=== PATIENT | female | born 1950 | race Caucasian/White ===

== ENCOUNTER 2019-02-11 19:14 | Emergency (ER) | payer OTHER, BC | END 2019-02-11 21:28 | disposition home or self-care (01) | LOC: ER FS 19:14 ==

== ENCOUNTER → 2019-02-15 | Outpatient (CLI) | payer OTHER ==
[~2019-02-15] MED LIST: ACHYD1T PO; DOXY100C2 PO; HYOS-20 PO; LISI10TA PO; LOVA10TA PO; PHEN200T27 PO
--- NOTE | 2019-02-15 12:26 | Diagnostic Imaging Report ---
EXAMINATION: Abdomen 1005h. INDICATION: Abdominal pain Supine and erect views were obtained. There are no prior studies available for comparison. There is some gas in both the large and small bowel in a nonspecific fashion. There is no evidence for a bowel obstruction. There is no mass, organomegaly or pathological calcification evident. There are a number of phleboliths low in the pelvis. Surgical clips in the right upper quadrant. The osseous structures are intact. The lung bases seem clear. Healed displaced fractures of the right seventh and eighth ribs are noted. IMPRESSION: The bowel gas pattern is nonspecific. There is no acute abnormality identified. Dictated by: Dictated on workstation # [id number]
== END ==
LOC: RAD FS 09:57
PROVIDERS: ATTEND Family Medicine
DX: R10.84 Generalized abdominal pain (principal); Z98.890 Other specified postprocedural states
CPT/HCPCS: 74019

== ENCOUNTER 2023-03-06 18:33 | Emergency (ER) | payer MEDICARE, OTHER ==
[~2023-03-06] VITALS: Ht 165.1 cm; Wt 113.0 kg
[2023-03-06 18:47] LABS: BILIRUBIN,URINE NEGATIVE (NEGATIVE); COLOR,URINE YELLOW; GLUCOSE, URINE (UA) NEGATIVE (NEGATIVE); KETONES,URINE NEGATIVE (NEGATIVE); LEUKOCYTE ESTERASE ,URINE TRACE (NEGATIVE); NITRITE,URINE NEGATIVE (NEGATIVE); PH,URINE 5.5 (5-9); PROTEIN,URINE NEGATIVE (NEGATIVE)
[2023-03-06] MEDS ORDERED: NS IV 1000 ML 1,000 ML IV STA (18:49)
[2023-03-06 18:50] LABS: BACTERIA,URINE TRACE /HPF; CLARITY,URINE CLOUDY; WBC,URINE >100 /HPF
[2023-03-06 19:07] LABS: BASOPHILS % (AUTO) 1 % (0-10); EOSINOPHILS # (AUTO) 0.1 10^3/uL (0.0-0.3); EOSINOPHILS % (AUTO) 2 % (0-10); HEMATOCRIT 39 % (35-52); HEMOGLOBIN 13.3 g/dL (11.5-16.0); LYMPHOCYTES # (AUTO) 2.2 10^3/uL (1.0-4.0); LYMPHOCYTES % (AUTO) 45 % (12-44); MEAN CORPUSCULAR HEMOGLOBIN 31 pg (25-34); MEAN CORPUSCULAR HGB CONC 34 g/dL (32-36); MEAN CORPUSCULAR VOLUME 91 fL (80-99); MEAN PLATELET VOLUME 11.2 fL (9.0-12.2); MONOCYTES # (AUTO) 0.4 10^3/uL (0.0-1.0); MONOCYTES % (AUTO) 7 % (0-12); NEUTROPHILS # (AUTO) 2.3 10^3/uL (1.8-7.8); NEUTROPHILS % (AUTO) 45 % (42-75); PLATELET COUNT 168 10^3/uL (130-400)
[2023-03-06 19:27] LABS: ALBUMIN 4.4 GM/DL (3.2-4.5); BILIRUBIN,TOTAL 0.5 MG/DL (0.1-1.0); CALCIUM 9.4 MG/DL (8.5-10.1); CREATININE SERUM 1.14 MG/DL (0.60-1.30); TOTAL PROTEIN 6.8 GM/DL (6.4-8.2)
[2023-03-06] MEDS ORDERED: NS 100 ML (IVPB) BAG IV ONE (19:30)
[2023-03-06] MEDS ORDERED: IOHEXOL 350 MG/ML 100 ML (OMNIPAQUE 350) VIAL IV ONE (19:30)
[2023-03-06] MEDS ORDERED: HOLD METFORMIN - RECEIVED CONTRAST 20 ML VIAL IV SCH (19:30)
--- NOTE | 2023-03-06 19:38 | ED Abdominal Pain ---
General Chief Complaint: Back Problems Stated Complaint: MUSCLE SPASMS Nursing Triage Note: Patient reports right flank pain since Wednesday. She states she took ibprofen and a muscle relaxer at home with a little relief from her pain. Source of Information: Patient History of Present Illness Date Seen by Provider: Mar 06, 2023 Time Seen by Provider: 18:37 Initial Comments 72-year-old female presenting with complaints of 2 to 3 days of right flank pain. She for started noticing on Wednesday of its been worse since then. She feels like it is muscle spasms on her right flank. She denies having pain or burning with urination. She denies any change in her bowels. She has had improvement when she takes ibuprofen but does not feel the muscle relaxer has been helping very much. She has tried methocarbamol without significant improvement. She did take 400 mg of ibuprofen around 330 and it is helping with the pain today. Without the ibuprofen she states her pain is a 10 out of 10 but currently it is down to a 5 from taking the ibuprofen. She denies any injury or trauma to initiate the pain. She denies having pain like this previously. Timing/Duration: 3-4 Days Severity/Quality: Severe, Cramping Location: Flank (Right flank) Activities at Onset: None Modifying Factors: Worsens With Movement, Worsens With Palpation Associated Symptoms: No Back Pain, No Chest Pain, No Diaphoresis, No Fever/Chills, No Fatigue, No Headache, No Heartburn, No Nausea/Vomiting, No R odell, No Shortness of Air, No Swelling/Mass in Abdomen, No Syncope, No Weakness Allergies and Home Medications Allergies Coded Allergies: No Known Drug Allergies (Unverified , 03/10/13) Patient Home Medication List Home Medication List Reviewed: Yes Cephalexin (Cephalexin) 500 Mg Capsule, 500 MG PO TID Prescribed by: GONZALES VASQUEZ on 03/06/232032 Dicyclomine HCl (Dicyclomine HCl) 10 Mg Capsule, 10 MG PO Q6H PRN for SPASMS Prescribed by: GONZALES VASQUEZ on 03/06/232032 Doxycycline Hyclate (Doxycycline Hyclate) 100 Mg Capsule, 1 EACH PO DAILY, (Reported) Entered as Reported by: JAYLIN HDZ on 03/15/13 1116 Hydrocodone Bit/Acetaminophen (Lorcet Plus 10/325 Mg) 1 Tab Tablet, 1-2 TAB PO Q4H PRN, (Reported) Entered as Reported by: JAYLIN HDZ on 03/15/13 111 Hyoscyamine Sulfate (Hyoscyamine Sulfate) 0.125 Mg Tablet, 0.125 MG PO Q4H Prescribed by: CARMELO BUI on 02/11/192124 Lisinopril (Prinivil) 10 Mg Tablet, 10 MG PO DAILY, (Reported) Entered as Reported by: TAMICA MARIN on 03/10/13 0815 Lovastatin (Lovastatin 10 Mg) 10 Mg Tablet, 1 EACH PO DAILY WITH SUPPER, (Reported) Entered as Reported by: TAMICA MARIN on 03/10/13 0815 Phenazopyridine Hcl (Pyridium) 200 Mg Tablet, 1 EACH PO TID PRN, (Reported) Entered as Reported by: JAYLIN HDZ on 03/15/131115 Review of Systems Review of Systems Constitutional: No chills, No fever EENTM: No Symptoms Reported Respiratory: No Symptoms Reported Cardiovascular: No Symptoms Reported Gastrointestinal: See HPI Genitourinary: See HPI Musculoskeletal: see HPI Skin: No change in color, No rash Psychiatric/Neurological: Anxiety Past Cghjqvj-Iixxtg-Qwqilt Hx Patient Social History Tobacco Use?: No Substance use?: No Alcohol Use?: No Pt feels they are or have been: No Seasonal Allergies Seasonal Allergies: No Past Medical History Surgery/Hospitalization HX: HTN, high cholesterol, low calcium, depression, insomnia Surgeries: Yes Abdominal, Appendectomy, Gallbladder, Hysterectomy Respiratory: No Cardiac: Yes Hypertension Neurological: No Reproductive Disorders: No Gastrointestinal: No Musculoskeletal: No Endocrine: No Integumentary: No Blood Disorders: No Physical Exam Vital Signs Vital Signs - First Documented 03/06/23 18:49 Temp 36.4 Pulse 76 Resp 16 B/P (MAP) 185/71 (109) Pulse Ox 96 O2 Delivery Room Air Capillary Refill : Less Than 3 Seconds Height/Weight/BMI Height: 5'5.00" Weight: 245lbs. oz. [id number]; 41.00 BMI Method:Stated General Appearance: WD/WN, no apparent distress, obese Respiratory: chest non-tender, lungs clear, normal breath sounds, no respiratory distress, no accessory muscle use Cardiovascular: normal peripheral pulses, regular rate, rhythm Gastrointestinal: normal bowel sounds, soft, no pulsatile mass; No distended, No guarding, No rebound; tenderness (Mild tenderness to right flank) Rectal: deferred Extremities: normal range of motion, non-tender, normal capillary refill Back: no CVA tenderness Neurologic/Psychiatric: alert, oriented x 3 Skin: normal color, warm/dry; No rash Progress/Results/Core Measures Results/Orders Lab Results Laboratory Tests Test 03/06/23 18:37 03/06/23 19:00 Range/Units Urine Color YELLOW Urine Clarity CLOUDY Urine pH 5.5 5-9 Urine Specific [place] 1.020 1.016-1.022 Urine Protein NEGATIVE NEGATIVE Urine Glucose (UA) NEGATIVE NEGATIVE Urine Ketones NEGATIVE NEGATIVE Urine Nitrite NEGATIVE NEGATIVE Urine Bilirubin NEGATIVE NEGATIVE Urine Urobilinogen 0.2 < = 1.0 MG/DL Urine Leukocyte Esterase TRACE H NEGATIVE Urine RBC (Auto) 1+ H NEGATIVE Urine RBC NONE /HPF Urine WBC >100 H /HPF Urine Crystals NONE /LPF Urine Bacteria TRACE /HPF Urine Casts NONE /LPF Urine Mucus NEGATIVE /LPF Urine Culture Indicated YES White Blood Count 5.0 4.3-11.0 10^3/uL Red Blood Count 4.31 3.80-5.11 10^6/uL Hemoglobin 13.3 11.5-16.0 g/dL Hematocrit 39 35-52 % Mean Corpuscular Volume 91 80-99 fL Mean Corpuscular Hemoglobin 31 25-34 pg Mean Corpuscular Hemoglobin Concent 34 32-36 g/dL Red Cell Distribution Width 13.0 10.0-14.5 % Platelet Count 168 130-400 10^3/uL Mean Platelet Volume 11.2 9.0-12.2 fL Immature Granulocyte % (Auto) 0 % Neutrophils (%) (Auto) 45 42-75 % Lymphocytes (%) (Auto) 45 H 12-44 % Monocytes (%) (Auto) 7 0-12 % Eosinophils (%) (Auto) 2 0-10 % Basophils (%) (Auto) 1 0-10 % Neutrophils # (Auto) 2.3 1.8-7.8 10^3/uL Lymphocytes # (Auto) 2.2 1.0-4.0 10^3/uL Monocytes # (Auto) 0.4 0.0-1.0 10^3/uL Eosinophils # (Auto) 0.1 0.0-0.3 10^3/uL Basophils # (Auto) 0.0 0.0-0.1 10^3/uL Immature Granulocyte # (Auto) 0.0 0.0-0.1 10^3/uL Sodium Level 139 135-145 MMOL/L Potassium Level 4.0 3.6-5.0 MMOL/L Chloride Level 104 98-107 MMOL/L Carbon Dioxide Level 24 21-32 MMOL/L Anion Gap 11 5-14 MMOL/L Blood Urea Nitrogen 17 7-18 MG/DL Creatinine 1.14 0.60-1.30 MG/DL Estimat Glomerular Filtration Rate 51 BUN/Creatinine Ratio 15 Glucose Level 272 H 70-105 MG/DL Calcium Level 9.4 8.5-10.1 MG/DL Corrected Calcium 9.1 8.5-10.1 MG/DL Total Bilirubin 0.5 0.1-1.0 MG/DL Aspartate Amino Transf (AST/SGOT) 45 H 5-34 U/L Alanine Aminotransferase (ALT/SGPT) 63 H 0-55 U/L Alkaline Phosphatase 82 40-136 U/L Total Protein 6.8 6.4-8.2 GM/DL Albumin 4.4 3.2-4.5 GM/DL Lipase 34 8-78 U/L My Orders Orders - GONZALES VASQUEZ MD Ua Culture If Indicated (03/06/23 18:37) Comprehensive Metabolic Panel (03/06/23 18:49) Lipase (03/06/23 18:49) Ed Iv/Invasive Line Start (03/06/23 18:49) Cbc With Automated Diff (03/06/23 18:49) Ct Abdomen/Pelvis W (03/06/23 18:49) Ns Iv 1000 Ml (Ns Iv 1000 Ml) (03/06/23 18:49) Lorazepam Injection (Lorazepam Injection (03/06/23 18:49) Urine Culture (03/06/23 18:37) Iohexol Injection (Omnipaque 350 Mg/Ml 1 (03/06/23 19:30) Received Contrast (Hold Metformin- Contr (03/06/23 19:30) Ns (Ivpb) 100 Ml (Sodium Chloride 0.9% 1 (03/06/23 19:30) Ceftriaxone Iv/Im (Ceftriaxone Iv/Im) (03/06/23 19:59) Medications Given in ED Current Medications Medications Dose Ordered Sig/Siva Route Start Time Stop Time Status Last Admin Dose Admin Iohexol 100 ml ONCE ONCE IV 03/06/23 19:30 03/06/23 19:31 DC 03/06/23 20:04 80 ML Sodium Chloride 100 ml ONCE ONCE IV 03/06/23 19:30 03/06/23 19:31 DC 03/06/23 20:04 80 ML Vital Signs/I&O 03/06/23 03/06/23 18:49 20:52 Temp 36.4 36.4 Pulse 76 72 Resp 16 16 B/P (MAP) 185/71 (109) 162/66 Pulse Ox 96 96 O2 Delivery Room Air Room Air Blood Pressure Mean: 109 Progress Progress Note #1: Progress Note Differential diagnosis includes kidney stone, UTI, diverticulitis, colitis, cholecystitis, appendicitis. Obtain peripheral IV access and send labs for complete blood count, comprehensive metabolic profile, lipase. Urinalysis to check for infection. CT scan of the abdomen and pelvis with IV contrast to look for acute pathology to be causing her symptoms. Patient was very anxious about obtaining a CT scan and felt that she would be too claustrophobic to have that be done. Will administer lorazepam 0.5 mg IV as a muscle relaxer and for anxiety. Normal saline 1 L IV fluid bolus for hydration. Progress Note #2: Progress Note Urinalysis shows specific gravity of 1.020. He has greater than 100 white blood cells in the urinalysis with trace bacteria and trace leukocyte esterase. She certainly could have an infection that was contributing to her pain. Progress Note #3: Progress Note Complete blood count showed a normal white blood cell count of 5 and a hemoglobin of 13.3. Comprehensive metabolic profile did not show any acute electrolyte abnormalities, other than elevated glucose at 272. Her BUN was 17 with a creatinine of 1.14. Lipase negative at 34. AST was just above normal at 45 and ALT just above normal at 63. Awaiting CT scan to evaluate for pyelonephritis, diverticulitis, colitis, abdominal pathology to be causing her pain. Will order a dose of Rocephin for pyuria while waiting on culture. 2002 on my personal interpretation and review of the CT scan of the abdomen pelvis with IV contrast I did not appreciate any acute pathology to cause the flank pain. Again this may be back to the bacteria and pyuria. Treat for urinary tract infection with Rocephin here and discharged on oral antibiotics. Awaiting radiology report of the CT. Progress Note #4: Progress Note CT scan of the abdomen and pelvis did not show any acute process. She did have some steatosis of the liver. Counseled patient and spouse on findings and results. We will continue with oral antibiotics after the Rocephin that was given here in the ED. Treat for pyuria and urinary tract infection. Prescribed dicyclomine or Bentyl 10 mg p.o. every 6 hours as needed spasms and pain. Encourage fluids and hydration. Check back with the clinic if having worsening symptoms or not improving. Diagnostic Imaging Diagonstic Imaging: CT Plain Films/CT/US/NM/MRI: abdomen, pelvis Comments [facility], [place] NAME: SHIRLEY PRETT[facility] REC#: [id number] PT STATUS: REG ER : 1950 PHYSICIAN: GONZALES VASQUEZ MD ADMIT DATE: 03/06/23/ER FS Signed Date of Exam:03/06/23 CT ABDOMEN/PELVIS W EXAMINATION: CT abdomen and pelvis with intravenous contrast. TECHNIQUE: Multiple contiguous axial images were obtained through the abdomen and pelvis after the uneventful administration of intravenous contrast. All CT scans use one or more of the following dose optimizing techniques: automated exposure control, MA and/or KvP adjustment based on patient size and exam type or iterative reconstruction. HISTORY: Right-sided flank pain. COMPARISON: None available. FINDINGS: The heart is unremarkable. The included lung bases are clear. No evidence of renal calculi or hydronephrosis. Peripelvic cysts are seen in the left kidney. The urinary bladder is nondistended. There is hepatic steatosis. No focal hepatic lesion. The gallbladder is surgically absent. The spleen, pancreas and adrenal glands have a normal appearance. There is no pathologically enlarged, mesenteric or retroperitoneal adenopathy. The bowel loops are nondilated. A few scattered diverticula are seen in the sigmoid colon. There is no free fluid or free air. No acute osseous abnormality. There is no free air, loculated collection or adenopathy in the pelvis. IMPRESSION: 1. No renal calculi or hydronephrosis. 2. Hepatic steatosis. Dictated by: Dictated on workstation # [id number] Dict: 03/06/232008 Trans: 03/06/232011 E [id number] Interpreted by: ROMEO BOWLES DO Electronically signed by: ROMEO BOWLES DO 03/06/232011 Reviewed: Reviewed by Me Departure Impression Primary Impression: Acute right flank pain Additional Impression: Pyuria due to bacterial urinary tract infection Disposition: HOME, SELF-CARE Condition: Improved Departure-Patient Inst. Decision time for Depature: 20:31 Referrals: ESTHER DAVE MD (PCP/Family) Primary Care Physician Patient Instructions: Flank Pain ED, Urinary Tract Infection, Adult ED Add. Discharge Instructions: The blood work and CT scan did not show any significant inflammation of your liver. You do have a slightly enlarged liver. Your urinalysis does not show bacteria and white blood cells consistent with a urinary tract infection. This could be causing the spasms and pain that you are having. Take the full course of antibiotics to treat for the infection and use the dicyclomine or Bentyl to help with spasms. Stay well-hydrated and drink plenty of water and electrolyte drinks. Check back with the clinic if having continued or worsening symptoms. All discharge instructions reviewed with patient and/or family. Voiced understanding. Scripts Dicyclomine HCl (Dicyclomine HCl) 10 Mg Capsule 10 MG PO Q6H PRN for SPASMS for 5 Days, #20 CAP 0 Refills Prov: GONZALES VASQUEZ MD 03/06/23 Cephalexin (Cephalexin) 500 Mg Capsule 500 MG PO TID for UTI for 7 Days, #21 CAP 0 Refills Prov: GONZALES VASQUEZ MD 03/06/23 GONZALES VASQUEZ MD Mar 06, 2023 19:38
[2023-03-06] MEDS ORDERED: cefTRIAXone IV/IM 1,000 MG in NS (IVPB) 50 ML 50 ML IV STA (19:59)
--- NOTE | 2023-03-06 20:14 | Diagnostic Imaging Report ---
EXAMINATION: CT abdomen and pelvis with intravenous contrast. TECHNIQUE: Multiple contiguous axial images were obtained through the abdomen and pelvis after the uneventful administration of intravenous contrast. All CT scans use one or more of the following dose optimizing techniques: automated exposure control, MA and/or KvP adjustment based on patient size and exam type or iterative reconstruction. HISTORY: Right-sided flank pain. COMPARISON: None available. FINDINGS: The heart is unremarkable. The included lung bases are clear. No evidence of renal calculi or hydronephrosis. Peripelvic cysts are seen in the left kidney. The urinary bladder is nondistended. There is hepatic steatosis. No focal hepatic lesion. The gallbladder is surgically absent. The spleen, pancreas and adrenal glands have a normal appearance. There is no pathologically enlarged, mesenteric or retroperitoneal adenopathy. The bowel loops are nondilated. A few scattered diverticula are seen in the sigmoid colon. There is no free fluid or free air. No acute osseous abnormality. There is no free air, loculated collection or adenopathy in the pelvis. IMPRESSION: 1. No renal calculi or hydronephrosis. 2. Hepatic steatosis. Dictated by: Dictated on workstation # [id number]
[2023-03-06] MEDS ORDERED: CEPH500C PO (20:33)
[2023-03-06] MEDS ORDERED: DICY-11 PO (20:33)
[2023-03-06 20:52] VITALS: BP 162/66
== END 2023-03-06 20:52 | disposition home or self-care (01) ==
LOC: EDUNIT# 18:33 → ER FS 18:35
DX: N39.0 Urinary tract infection, site not specified (principal); R82.81 Pyuria; E66.9 Obesity, unspecified; Z68.41 Body mass index [BMI] 40.0-44.9, adult
CPT/HCPCS: 36415; 74177; 80053; 81000; 83690; 85025; 87088; Q9967